=== PATIENT | female | born 1960 | race Caucasian/White ===

== ENCOUNTER 2025-02-07 13:26 | Emergency (ER) | payer OTHER ==
[2025-02-07 15:07] LABS: APPEARANCE,URINE CLEAR (CLEAR); GLUCOSE,URINE NEGATIVE (NEGATIVE); OCCULT BLOOD,URINE NEGATIVE (NEGATIVE)
[2025-02-07 15:19] LABS: EPITHELIAL CELLS,URINE RARE
== END 2025-02-07 16:04 | disposition home or self-care (01) ==
LOC: JP.ED 13:26
DX: R55 Syncope and collapse (principal); Z79.899 Other long term (current) drug therapy
CPT/HCPCS: 81001; 87086; 99284